=== PATIENT | female | born 1990 ===

== ENCOUNTER 2019-09-04 17:05 | Emergency (ER) | payer OTHER ==
[~2019-09-04] VITALS: Ht 157.5 cm; Wt 59.0 kg
== END 2019-09-04 18:46 | disposition home or self-care (01) ==
LOC: ER 17:05
DX: T78.1XXA Other adverse food reactions, not elsewhere classified, initial encounter (principal); R11.2 Nausea with vomiting, unspecified; R10.84 Generalized abdominal pain; X58.XXXA Exposure to other specified factors, initial encounter